=== PATIENT | female | born 1950 | race Caucasian/White ===

== ENCOUNTER 2023-08-08 08:39 | Observation (INO) | payer MEDICARE, OTHER ==
[~2023-08-08] VITALS: Ht 170.2 cm; Wt 39.0 kg
[2023-08-08] VITALS (16 sets, daily range): BP systolic 87–129; BP diastolic 41–64; PULSE 77–92; TEMP 97.6–98.8
[2023-08-08] MEDS ORDERED: 1/2 NS 1,000 ML IV SCH (09:15)
[2023-08-08] MEDS ORDERED: ceFAZolin 1 G in Water For Injection,Sterile 10 ML IV SCH (09:15)
[2023-08-08 09:45] LABS: BASO % 0.7 % (0.0-2.0); EOS # 0.1 K/mm3 (0.0-0.7); EOS % 1.7 % (0.0-4.0); GRAN # 2.1 K/mm3 (1.4-6.5); GRAN % 73.4 % (42.2-75.2); HEMOGLOBIN 11.4 g/dl (12.5-16.0); LYMPH # 0.4 K/mm3 (1.2-3.4); LYMPH % 14.9 % (20.0-51.0); MEAN CELL VOLUME 95 fl (80.0-100.0); MEAN CORPUSCULAR HEMOGLOBIN 31 pg (27-31); MEAN CORPUSCULAR HGB CONC 33 g/dl (33.0-37.0); MEAN PLATELET VOLUME 9.7 fl (7.4-10.4); MONO # 0.3 K/mm3 (0.1-0.6); MONO % 9.3 % (1.7-9.3); PLATELET COUNT 131 K/mm3 (130-400); RED BLOOD COUNT 3.64 M/mm3 (4.10-5.30); REDCELL DISTRIBUTION WIDTH-CV 12.7 % (11.5-14.5)
[2023-08-08 09:47] LABS: HEMATOCRIT 34.4 % (37.0-47.0)
[2023-08-08 09:51] LABS: INR 1.1 (0.8-3.0); PROTHROMBIN TIME 11.8 SECONDS (9.7-12.8)
[2023-08-08] MEDS ORDERED: CALCIUM/MAGNESI1 T13 PO (09:55)
[2023-08-08] MEDS ORDERED: COREG 3.123.125 MG/T PO (09:56)
[2023-08-08] MEDS ORDERED: LASIX 20MG TABL20 MG PO (09:56)
[2023-08-08 09:57] LABS: CALCIUM 9.3 mg/dL (8.4-10.2); CREATININE, serum 0.66 mg/dL (0.57-1.11); POTASSIUM 4.1 mmol/L (3.5-4.5)
[2023-08-08] MEDS ORDERED: ZESTRIL 5MG5 MG PO (09:57)
[2023-08-08] MEDS ORDERED: PRILOSEC 20MG20 MG PO (09:57)
--- NOTE | 2023-08-08 10:52 | NUR ---
Refer to [facility] report for procedural sedation/notes
[2023-08-08] MEDS ORDERED: NS 1,000 ML IV.SOLN. IR SCH (11:15)
[2023-08-08] MEDS ORDERED: Topical Skin Adhesive 1 EACH (1 ML) TOP ONE (11:27)
[2023-08-08] MEDS ORDERED: fentaNYL 50 MCG/ML 2 ML VIAL IV SCH (11:36)
[2023-08-08] MEDS ORDERED: Midazolam 2 MG/2 ML VIAL IV SCH (11:37)
--- NOTE | 2023-08-08 12:30 | NUR ---
Pt to room 319 - recieved by CHARMAINE Medina - vital signs initiated and first set reviewed together - left upper chest incision site dressing stable and assessed together - pt's son at bedside - all questions answered - pt denies further needs, call light in reach.
--- NOTE | 2023-08-08 13:00 | NUR ---
PATIENT ARRIVED TO MEDICAL FLOOR AT 1230. ADMISSION ASSESSMENT AND INTAKE COMPLETE. POST OP VS INITIATED. MED REC COMPLETE. SON AT BEDSIDE. INCISION SITE TO LEFT CHEST IS COVERED WITH GAUZE AND TAPE. CDI. PATIENT IS ALERT AND ORIENTED, BUT STILL DROWSY. WILL MONITOR.
[2023-08-08] MEDS ORDERED: Bisacodyl 5 MG TAB PO PRN (13:15)
[2023-08-08] MEDS ORDERED: Magnes Hydrox (MOM) 80 MG/ML 30 ML CUP PO PRN (13:30)
[2023-08-08] MEDS ORDERED: Ondansetron 4 MG/2 ML VIAL IV PRN (13:30)
[2023-08-08] MEDS ORDERED: Acetaminophen 500 MG TAB PO PRN (15:30)
--- NOTE | 2023-08-08 15:31 | NUR ---
PATIENT RESTING IN BED. SON AT BEDSIDE. ICE APPLIED TO LEFT CHEST, PATIENT C/O PAIN. SRINI RN NOTIFIED. WILL MONITOR
--- NOTE | 2023-08-08 16:02 | NUR ---
THIS NURSE ADMINISISTER TYENOL PER SEP. PATIENT AMBULATED TO BATHROOM SBA. VSS.
--- NOTE | 2023-08-08 19:12 | NUR ---
report received from uriel peck. pt sitting in bed watching tv. pt denies pain at this time. call light in reach. all needs met at this time.
[2023-08-08] MEDS ORDERED: Carvedilol 3.125 MG TAB PO SCH (21:00)
[2023-08-08] MEDS ORDERED: Lisinopril 5 MG TAB PO SCH (21:00)
[2023-08-08] MEDS ORDERED: Melatonin 3 MG TAB PO PRN (21:00)
--- NOTE | 2023-08-08 21:50 | NUR ---
shift assessment complete, see documentation. pt reports pain with arm movement but states she is doing well now. sling in place to LUE. ice on incision. pt a&o x4. bed alarm on. call light in reach. all needs met at this time.
--- NOTE | 2023-08-08 23:18 | NUR ---
critical care called to report low HR of 35. manual radial pulse checked and is 78. pt asymptomatic.
[2023-08-09] VITALS (21 sets, daily range): BP systolic 70–102; BP diastolic 37–61; PULSE 77–98; TEMP 97.4–98.3
--- NOTE | 2023-08-09 03:44 | NUR ---
pt ambulating to bathroom with steady gait. pt urinating without issue. pt denies pain. ice to incision. pt remains with 2L NC overnight. bed alarm on. call light in reach. all needs met at this time.
[2023-08-09] MEDS ORDERED: Omeprazole 20 MG **** subs to Pantoprazole 40 MG PO SCH (07:00)
--- NOTE | 2023-08-09 08:15 | NUR ---
Tyrese here from [employer] laborer to get pt for the DFT. Radiology also in room for xray and lab waiting to draw. Pt doing okay, no needs or questions
[2023-08-09] MEDS ORDERED: Furosemide 20 MG TAB PO SCH (09:00)
[2023-08-09 09:08] LABS: HEMOGLOBIN 11.1 g/dl (12.5-16.0); MEAN CELL VOLUME 96 fl (80.0-100.0); MEAN CORPUSCULAR HEMOGLOBIN 31 pg (27-31); MEAN CORPUSCULAR HGB CONC 33 g/dl (33.0-37.0); MEAN PLATELET VOLUME 9.8 fl (7.4-10.4); RED BLOOD COUNT 3.57 M/mm3 (4.10-5.30); REDCELL DISTRIBUTION WIDTH-CV 12.8 % (11.5-14.5)
--- NOTE | 2023-08-09 09:13 | NUR ---
Pt leaving the floor at this time for DFT with photo lab manager. Was not able to do device download as the tablet was not charged. Will do once she returned if needed
[2023-08-09 09:20] LABS: HEMATOCRIT 34.2 % (37.0-47.0)
[2023-08-09 09:22] LABS: PLATELET COUNT 110 K/mm3 (130-400)
[2023-08-09 09:29] LABS: CALCIUM 8.6 mg/dL (8.4-10.2); CREATININE, serum 0.63 mg/dL (0.57-1.11); POTASSIUM 4.8 mmol/L (3.5-4.5)
--- NOTE | 2023-08-09 09:31 | NUR ---
Refer to [facility] report for procedural sedation/notes
[2023-08-09] MEDS ORDERED: NS 1,000 ML IV.SOLN. IR SCH (11:13)
[2023-08-09] MEDS ORDERED: Naloxone 0.4 MG/ML VIAL IV SCH (11:16)
[2023-08-09] MEDS ORDERED: Midazolam 2 MG/2 ML VIAL IV SCH (11:17)
[2023-08-09] MEDS ORDERED: fentaNYL 50 MCG/ML 2 ML VIAL IV SCH (11:18)
[2023-08-09] MEDS ORDERED: Topical Skin Adhesive 1 EACH (1 ML) TOP ONE (11:28)
--- NOTE | 2023-08-09 12:00 | NUR ---
Pt back to room 319 - pt's son at bedside - received at bedside by CHARMAINE Monaco - vitals initiated and reviewed together - incision site stable, no bleeding or swelling - HOB at 35degrees - pt awake, alert and oriented (baseline neuro status).
--- NOTE | 2023-08-09 12:30 | NUR ---
Pt back recently from laborer plumbing. Pt is awake and alert although very drowsy. Pt states that she is sleepy, but is not able to close her eyes and sleep. Son is at bedside at this time. Pt has no complaints of any pain at this time. Son reported yesterday that once she started having some pain at that site, it took some time for it to become tolerable again. PRN tylenol given at this time. I did assist with ordering her some lunch. Dressing to left chest is CDI. Pt refusing ice pack at this time reporting it is too heavy. Will make smaller pack to see if that will work better for her
--- NOTE | 2023-08-09 13:56 | NUR ---
Pt eating lunch at this time. PT is still drowsy, but is becoming more baseline overtime. Incision site continues to be CDI. Son at bedside
[2023-08-09] MEDS ORDERED: PRINIVIL5 MG PO (14:45)
--- NOTE | 2023-08-09 15:30 | NUR ---
Pt resting with eyes closed even non labored breathing.
[2023-08-09] MEDS ORDERED: ESTRACE0.1 MG/GM VG (15:40)
--- NOTE | 2023-08-09 17:52 | NUR ---
facility maintenance worker met with patient to discuss discharge planning. Patient reports she lives in [place] with her , Mulugeta, P# [phone]. Patient's son, Zach, is another point of contact but he lives in [place], P# [phone]. PCP is Naresh Rodriguez, preferred pharmacy is [facility] in [place]. No issues affording medications at this time. Patient reports her DPOA-HC is Mulugeta then Zach. Patient has oxygen at home that she uses in the evening through [facility]. Patient reports she needs assistance with ADLS. Patient reports her son, Osvaldo, came to the hospital from out of town and would be able to assist transporting her home. During this visit, patient spoke very quietly and softly. SW spoke with patient's nurse after the visit to determine if PT/OT could be ordered to determine if patient needs additional services upon discharge. Nurse is requesting PT/OT orders.
--- NOTE | 2023-08-09 18:18 | NUR ---
Pt BP continues to be soft and pt still drowsy from morning procedure. Site to left chest is CDI. No complaints of feeling nauseated. Son at bedside at this time
--- NOTE | 2023-08-09 19:36 | NUR ---
PCT reported BP of 70/37. This nurse checked manual BP: 76/42. Patient is alert and oriented x 4. Called Dr. Reddy to update on BP. Hold Cardizem and Lisinopril tonight. Ok with BP 75-80 systolic due to low EF.
[2023-08-09] MEDS ORDERED: Clindamycin 150 MG CAP PO SCH (21:00)
--- NOTE | 2023-08-09 23:33 | NUR ---
Patient assessed around 1999. Alert and oriented, and able to make needs known. Denies having pain and discomfort. Peripheral INT to left forearm. Has sling to left arm due to ICD placement. Dressings to area is CDI. Denies SOB and dyspnea. LS CTA. HRR. Telemetry in place. BSAx4. No edema. Voices no questions, needs, or concerns at this time. In bed with call light within reach. High fall risk precautions in place, bed alarm on.
[2023-08-10] VITALS (9 sets, daily range): BP systolic 77–97; BP diastolic 32–63; PULSE 77–95; TEMP 97.3–97.8
--- NOTE | 2023-08-10 05:55 | NUR ---
Patient given PRN Acetaminophen this morning as requested for discomfort to ICD sugical site. Denies any other questions, needs, or concerns at this time. Systolic BP remained greater than 75 this shift. In bed with call light within reach. High fall risk precautions in place. Bed alarm on.
--- NOTE | 2023-08-10 07:05 | NUR ---
RA SPO2 83% SITTING ON SIDE OF BED. PLACED BACK ON 2 LPM NC. 90% RN NOTIFIED
--- NOTE | 2023-08-10 09:31 | NUR ---
ASSESSMENT COMPLETE. PATIENT IS SOFTSPOKEN. AXOX4. SYSTOLIC BLOOD PRESSURE HAS REMAINED IN THE 80S. VISUAL DISPLAY ASSOCIATE IS OKAY WITH IT BEING ABOVE 75. PATIENT ICD SITE IS [facility]. INTERROGATION COMPLETE THIS MORNING AT 0730. XRAY AND EKG COMPLETE. PATIENT COMPLAINS OF BACK PAIN AND BOTTOM PAIN. REDDNESS ON BOTTOM, BUT IS BLANCHABLE. PATIENT IS VERY THIN WITH LOW APPETITE. COMPLAINED OF NAUSEA THIS MORNING WHILE TAKING ORAL ANTIBIOTIC. GAVE PRN DOSE OF IV ZOFRAN. PATIENT IS CURRENTLY RESTING IN BED SUPINE WITH BED ELEVATED TO 45*
[2023-08-10] MEDS ORDERED: ZESTRIL 5MG5 MG PO (10:59)
[2023-08-10] MEDS ORDERED: CLEOCIN HCL300 MG PO (11:00)
--- NOTE | 2023-08-10 15:59 | NUR ---
millinery worker spoke with Yany RN with Cardiology regarding reccomendations for pt's discharge. KAT was informed by KAT Hernandez that pt is from the [facility] and would like information on swing bed. KAT spoke with EMILIA at [facility] who informed SW it would be $750 minimum for room charge, not with PT/OT. This is the private pay daily rate. KAT spoke with CURT Perry who informed SW patient will stay observation and does not meet criteria for Inpatient status. SW went into room and sonIsh was at bedside. KAT provided information on [facility]. Pt and son declined this as being a reasonable option. SW provided that her other option if they did not want to private pay could be going home with HH and increased family support. They were hesitant and wanted to review options. KAT provided Medicare.gov list of HH agencies. Only two were listed, [facility] does not have enough area coverage. [facility] was the only HH option. KAT provided the list and informed them SW leaves at 4:30pm and it would be best to get a referral sent out if they wanted. Pt and son were agreeable to this. KAT Herbert faxed referral to [facility]. Discharge Plan: Home with increased support and [facility] HH
--- NOTE | 2023-08-10 16:24 | NUR ---
PATIENT WAS SCHEDULED TO DISCHARGE TODAY PER CARDIOLOGY. AFTER RT CHECKED O2 THIS MORNING, PATIENT WAS ON ROOM AIR SATTING AT 83% PATIENT NORMALLY ONLY WEARS OXYGEN 2L AT NIGHT, BUT NOW QUALIFIES FOR OXYGEN THERAPY 2L DURING THE DAY AND DUE TO INCREASED WEAKNESS AND LOW BLOOD PRESSURES, PATIENT COULD BE A CANDIDATE FOR HOME HEALTH. PT AND OT EVALUATED THE PATIENT AND FELT THE PATIENT WAS NOT A CANDIDATE FOR HOME HEALTH, BUT WOULD NEED A SWING BED DUE TO INABILITY TO WALK WITHOUT ASSISTANCE. DUE TO THE PATIENT BEING ON OBSERVATION/CARDIOLOGY PATIENT, PATIENT WOULD HAVE TO PRIVATE PAY AT A FACILITY. FAMILY MEMBERS STATES THIS IS NOT AN OPTION. AT THIS POINT CARDIOLOGY FEELS THIS PATIENT IS CLEAR FOR DISCHARGE. PATIENT IS CURRENTLY RESTING IN BED WITH FAMILY AT BEDSIDE. NURSING AND SOCIAL WORK IS WAITING TO HEAR BACK FROM [facility], IF IT'S POSSIBLE FOR HOME OXYGEN TO BE DELIVERED BEFORE DISCHARGE. IF NOT, PATIENT MAY NEED TO STAY OVERNIGHT.
--- NOTE | 2023-08-10 17:45 | NUR ---
PATIENT RECEIVED DISCHARGE INSTRUCTIONS. ACKNOWLEDGED UNDERSTANDING WITH FOLLOW UP APPOINTMENTS AND MEDICATIONS SON AT BEDSIDE TO ASSIST. PATIENT IV DISCONTINUED. TELEMETRY DISCONTINUED.
--- NOTE | 2023-08-10 18:06 | NUR ---
NURSING SPOKE WITH PATIENT AND FAMILY MEMBER ABOUT SIGNS/SYMPTOMS OF INFECTION AT THE ICD SITE. [facility] ARRIVED WITH HOME OXYGEN AND PATIENT DISCHARGED WITH NURSING STAFF TO ED ENTRANCE WHERE PATIENT FAMILY MEMBER PICKED UP THE PATIENT TO TRANFER HOME.
--- NOTE | 2023-08-11 09:41 | NUR ---
dining service worker was infromed by CHARMAINE Benton that pt discharged with a verbal order yesterday, but they need a signed order. SW called Dr. Reddy and he signed the order for oxygen through [facility]. SW Student P[employer] faxed this. dining service worker left a voicemail to [facility] to see if they accepted pt. Discharge Plan: Home with tenative HH
== END 2023-08-10 18:08 | disposition home or self-care (01) ==
LOC: COL.CAR 08:39 → MEDICAL 12:28 → COL.CAR 08-09 12:44 → MEDICAL 08-09 12:45 → COL.CAR 08-10 08:00 → MEDICAL 08-10 18:08
PROVIDERS: ADMIT Internal Medicine Cardiovascular Disease
DX: I42.0 Dilated cardiomyopathy (principal); I08.0 Rheumatic disorders of both mitral and aortic valves; E43 Unspecified severe protein-calorie malnutrition; Z68.1 Body mass index [BMI] 19.9 or less, adult; Z79.899 Other long term (current) drug therapy
CPT/HCPCS: OP; C1721; C1769; C1777; C1894; C1898; G0378; J0665; J0690; J0737; J2250; J2310; J2405; J3010; J7030